=== PATIENT | female | born 1935 | race Caucasian/White ===

== ENCOUNTER 2016-06-02 12:37 | Emergency (ER) | payer MEDICARE, MEDICAID ==
--- NOTE | 2016-06-02 13:57 | CR ---
Chest 1V Frontal HISTORY: Diaphoresis COMPARISON: 09/06/2007 FINDINGS: Left-sided pacemaker. Right-sided dialysis type catheter distal tip overlies superior vena cava right atrial junction. Mild cardiomegaly. No acute congestive change no dense infiltrates or e ffusions. Slightly limited inspiration. Probable linear atelectatic change left lung base. Impression: Cardiomegaly. No acute infiltrates.
[2016-06-02] MEDS: HYDROmorphone 0.5 MG/0.5 ML Syringe IVPUSH ONE ×2 (14:01→16:17)
--- NOTE | 2016-06-02 14:49 | EDM.PDOC ---
ED HISTORY OF PRESENT ILLNESS - General Chief Complaint: Respiratory Problem Stated Complaint: [facility] Time Seen by Provider: 06/02/16 12:45 Source: Reports: Patient, Family, Other (Pt was quite obtunded on arrival. ) History Limitations: Reports: Altered mental status - History of Present Illness INITIAL COMMENTS - FREE TEXT/NARRATIVE: Pt appears to be having difficulty answering questions and following directions. She has increased pain in the coccyx area. She got to Dialysis today and she was not very responsive and she had a low bp and was very diaphorertic Timing/Duration: Reports: Hour(s):, Getting worse Location, General: Reports: generalized Associated Symptoms: Reports: confusion, weakness, other (diaphoretic. ) - Related Data Allergies/ADRs: Allergies Allergy/AdvReac Type Severity Reaction Status Date / Time [id number] Reductase Allergy Muscle Verified 06/02/16 13:42 Inhibitor Aches Home Meds: Home Meds Albuterol [Proair HFA] 2 puff INH BID 12/01/13 [History] Cholecalciferol (Vitamin D3) [Vitamin D] 5,000 mg PO DAILY 12/01/13 [History] Hydrocodone/Acetaminophen [Hydrocodon-Acetaminophn 10-325] 10 mg PO Q6H PRN [History] Insulin Aspart [NovoLOG] 1 units SQ QAM PRN 12/01/13 [History] Insulin Glarg,Human.Rec.Analog [Lantus] 14 units SQ QPM 12/01/13 [History] Zolpidem Tartrate [Ambien] 3 mg PO DAILY 12/01/13 [History] Warfarin [Coumadin] 2.5 mg PO DAILY 06/02/16 [History] fentaNYL [Fentanyl] 1 each TD Q72H 06/02/16 [History] Past Medical History HEENT History: Reports: Cataract, Impaired vision Cardiovascular History: Reports: High cholesterol, Hypertension, Pacemaker Respiratory History: Reports: COPD Gastrointestinal History: Reports: Chronic constipation Genitourinary History: Reports: Renal disease, Urinary incontinence, UTI, recurrent [employer] History: Reports: Musculoskeletal History: Reports: Fracture, Fibromyalgia, Osteoarthritis, Osteoporosis, Other (see below) Other Musculoskeletal History: fx r arm osteopenia Endocrine/Metabolic History: Reports: Diabetes, type II Oncologic (Cancer) History: Reports: Uterine Dermatologic History: Reports: Decubitus ulcer - Infectious Disease History Infectious Disease History: Reports: Chicken pox - Past Surgical History GI Surgical History: Reports: Colonoscopy, EGD Female Surgical History: Reports: Hysterectomy Musculoskeletal Surgical History: Reports: Other (see below) Other Musculoskeletal Surgeries/Procedures:: hip surgery Social & Family History - Tobacco Use Smoking Status *Q: Former Smoker Years of Tobacco use: 2 Packs/Tins Daily: 0.2 Second Hand Smoke Exposure: No - Caffeine Use Caffeine Use: Reports: Coffee - Recreational Drug Use Recreational Drug Use: No ED ROS GENERAL - Review of Systems Review Of Systems: See Below Constitutional: Reports: weakness HEENT: Reports: No symptoms Respiratory: Reports: No Symptoms Cardiovascular: Reports: Other (pt was not reponding well. She was diaphoretic. ) Endocrine: Reports: no symptoms GI/Abdominal: Reports: No symptoms : Reports: no symptoms Musculoskeletal: Reports: no symptoms Skin: Reports: no symptoms ED EXAM, GENERAL - Physical Exam Exam: See Below Free Text/Narrative:: Pt arrived with a history of getting to the dialysis unit today and she was diaphoretic and not responding well. She still was not responding well on arrival. Her bp was low at the dialysis unit. Exam Limited By: Altered mental status General Appearance: alert, lethargic, moderate distress Ears: normal TMs Nose: normal inspection Throat/Mouth: Normal inspection Head: atraumatic Neck: normal inspection Respiratory/Chest: no respiratory distress Cardiovascular: other (pt does have a irregular rhytm with ectopics. ) GI/Abdominal: soft, non tender (Female) Exam: Normal external exam Rectal (Female) Exam: Other (pt dupont decubitus and she is having alot of pain over the cocyx area. ) Back Exam: other (Pt is having alot of pain over the cocyx area. ) Neurological: alert, disoriented, other ( respnes slowly. ) Psychiatric: depressed mood Course - Vital Signs Last Recorded V/S: Last Vital Signs Temp 36.5 C 06/02/16 15:49 Pulse 70 06/02/16 15:49 Resp 16 06/02/16 14:40 BP 104/51 L 06/02/16 15:49 Pulse Ox 99 06/02/16 15:49 - Orders/Labs/Meds Labs: Laboratory Tests 06/02/16 06/02/16 06/02/16 Range/Units 13:19 13:19 13:29 WBC 12.0 H (4.5-11.0) K/uL RBC 3.94 (3.30-5.50) M/uL Hgb 12.6 (12.0-15.0) g/dL Hct 38.0 (36.0-48.0) % MCV 96 (80-98) fL MCH 32 H (27-31) pg MCHC 33 (32-36) % Plt Count 172 (150-400) K/uL Neut % (Auto) 85 H (36-66) % Lymph % (Auto) 6 L (24-44) % Lares % (Auto) 8 H (2-6) % Eos % (Auto) 0 L (2-4) % Baso % (Auto) 0 (0-1) % PT 21.6 H (9.5-12.0) sec INR 1.99 H (0.80-1.20) Sodium 129 L (140-148) mmol/L Potassium 4.1 (3.6-5.2) mmol/L Chloride 90 L (100-108) mmol/L Carbon Dioxide 25 (21-32) mmol/L Anion Gap 18.1 H (5.0-14.0) mmol/L BUN 41 H (7-18) mg/dL Creatinine 4.1 H* (0.6-1.0) mg/dL Est Cr Clr Drug Dosing 8.71 mL/min Estimated GFR (MDRD) 10 L (>60) Glucose 305 H (74-106) mg/dL Calcium 8.4 L (8.5-10.1) mg/dL Total Bilirubin 0.7 (0.2-1.0) mg/dL AST 20 (15-37) U/L ALT 17 (12-78) U/L Alkaline Phosphatase 85 (46-116) U/L Total Protein 7.3 (6.4-8.2) g/dL Albumin 2.8 L (3.4-5.0) g/dL Globulin 4.5 H (2.3-3.5) g/dL Albumin/Globulin Ratio 0.6 L (1.2-2.2) Urine Color Urine Appearance Urine pH (4.5-8.0) Ur Specific Hays (1.008-1.030) Urine Protein (NEGATIVE) mg/dL Urine Glucose (UA) (NEGATIVE) mg/dL Urine Ketones (NEGATIVE) mg/dL Urine Occult Blood (NEGATIVE) Urine Nitrite (NEGATIVE) Urine Bilirubin (NEGATIVE) Urine Urobilinogen (NORMAL) mg/dL Ur Leukocyte Esterase (NEGATIVE) Urine RBC (0-5) Urine WBC (0-5) Ur Epithelial Cells Amorphous Sediment Urine Bacteria Urine Mucus Urine Other 06/02/16 Range/Units 15:27 WBC (4.5-11.0) K/uL RBC (3.30-5.50) M/uL Hgb (12.0-15.0) g/dL Hct (36.0-48.0) % MCV (80-98) fL MCH (27-31) pg MCHC (32-36) % Plt Count (150-400) K/uL Neut % (Auto) (36-66) % Lymph % (Auto) (24-44) % Lares % (Auto) (2-6) % Eos % (Auto) (2-4) % Baso % (Auto) (0-1) % PT (9.5-12.0) sec INR (0.80-1.20) Sodium (140-148) mmol/L Potassium (3.6-5.2) mmol/L Chloride (100-108) mmol/L Carbon Dioxide (21-32) mmol/L Anion Gap (5.0-14.0) mmol/L BUN (7-18) mg/dL Creatinine (0.6-1.0) mg/dL Est Cr Clr Drug Dosing mL/min Estimated GFR (MDRD) (>60) Glucose (74-106) mg/dL Calcium (8.5-10.1) mg/dL Total Bilirubin (0.2-1.0) mg/dL AST (15-37) U/L ALT (12-78) U/L Alkaline Phosphatase (46-116) U/L Total Protein (6.4-8.2) g/dL Albumin (3.4-5.0) g/dL Globulin (2.3-3.5) g/dL Albumin/Globulin Ratio (1.2-2.2) Urine Color Yellow Urine Appearance Slightly cloudy Urine pH 5.0 (4.5-8.0) Ur Specific Hays 1.015 (1.008-1.030) Urine Protein 30 H (NEGATIVE) mg/dL Urine Glucose (UA) 100 H (NEGATIVE) mg/dL Urine Ketones Negative (NEGATIVE) mg/dL Urine Occult Blood Large (NEGATIVE) Urine Nitrite Negative (NEGATIVE) Urine Bilirubin Small (NEGATIVE) Urine Urobilinogen Normal (NORMAL) mg/dL Ur Leukocyte Esterase Large (NEGATIVE) Urine RBC 10-20 H (0-5) Urine WBC 10-20 H (0-5) Ur Epithelial Cells Few Amorphous Sediment Not seen Urine Bacteria Few Urine Mucus Few Urine Other Meds: Medications Discontinued Medications Generic Name Dose Route Start Last Admin Trade Name Freq PRN Reason Stop Dose Admin Hydromorphone HCl 0.5 mg 06/02/16 13:54 06/02/16 16:17 Dilaudid IVPUSH 06/02/16 13:55 0.5 mg ONETIME ONE Administration Hydromorphone HCl 0.5 mg 06/02/16 16:12 06/02/16 16:18 Dilaudid IVPUSH 06/02/16 16:13 0.5 mg ONETIME ONE Administration Sodium Chloride 1,000 mls @ 100 mls/hr 06/02/16 15:45 06/02/16 16:18 Normal Saline IV 100 mls/hr ASDIRECTED KUNAL Administration - Re-Assessments/Exams Free Text/Narrative Re-Assessment/Exam: 06/02/16 15:23 Pt will need inpatient dialysis ovr the weekend. She was not dialized today, Her creatnine i 4.1. 06/02/16 15:24 Departure - Departure Time of Disposition: 16:25 Disposition: DC/Tfer to Acute Hospital 02 Condition: fair Clinical Impression: Chronic renal insufficiency, Dialysis complication, Hypotension, Coccyx contusion Referrals: PCP,None [Primary Care Provider] - Forms: ED Department Discharge Care Plan Goals: Transfer to [facility].
[2016-06-02] MEDS ORDERED: Sodium Chloride 0.9% 1,000 ML IV SCH (15:45)
[2016-06-02 15:50] VITALS: BP 104/51
[2016-06-02] MEDS ORDERED: HYDROmorphone 0.5 MG/0.5 ML Syringe IVPUSH ONE (16:12)
== END 2016-06-02 16:21 ==
LOC: JP.ED 12:37
DX: N18.9 Chronic kidney disease, unspecified (principal); I95.9 Hypotension, unspecified; S30.0XXA Contusion of lower back and pelvis, initial encounter; T82.898A Other specified complication of vascular prosthetic devices, implants and grafts, initial encounter; E78.00 Pure hypercholesterolemia, unspecified; J44.9 Chronic obstructive pulmonary disease, unspecified; E11.9 Type 2 diabetes mellitus without complications; Z85.42 Personal history of malignant neoplasm of other parts of uterus; Z90.710 Acquired absence of both cervix and uterus; Z98.890 Other specified postprocedural states; Z87.891 Personal history of nicotine dependence; Z79.01 Long term (current) use of anticoagulants; Z79.4 Long term (current) use of insulin; Z79.899 Other long term (current) drug therapy; Z88.8 Allergy status to other drugs, medicaments and biological substances
CPT/HCPCS: 36415; 71010; 80053; 81001; 85025; 85610; 93005; 96361; 96374; 96376; 99284; J1170; J7040; 93010; 99285